=== PATIENT | male | born 1975 | race Native Hawaiian/Other Pacific Islander ===

== ENCOUNTER 2024-05-15 09:50 | Outpatient (REF) | payer OTHER, SELFPAY ==
[2024-05-15 11:08] LABS: MANUAL DIFF FLAG NO
[2024-05-15 11:14] LABS: Basophils Percent Auto 0.8 % (0-2); Eosinophils Absolute Auto 0.3 X10*3/uL (0.0-0.4); Eosinophils Percent Auto 5.6 % (0-4); Hemoglobin 15.6 g/dl (14.0-18.0); Imm Gran Abs Auto 0.05 X10*3/uL (0.00-0.03); Lymphocytes Absolute Auto 1.3 X10*3/uL (1.2-4.9); Lymphocytes Percent Auto 26.1 % (20-40); Mean Corpuscular HGB Conc 33.2 g/dl (31.0-36.0); Mean Corpuscular Volume 84.2 fL (80.0-98.0); Mean Platelet Volume 11.6 fL (9.4-12.4); Monocytes Absolute Auto 0.7 X10*3/uL (0.1-1.2); Monocytes Percent Auto 14.9 % (2-11); Neutrophils Absolute Auto 2.5 x10*3/uL (2.0-8.3); Neutrophils Percent Auto 51.6 % (45-73); Platelet Count 164 X10*3/uL (160-400); Red Blood Count 5.58 X10*6/uL (4.60-5.80); Red Cell Distribution Width 13.5 % (11.0-16.0); White Blood Count 4.8 X10*3/uL (4.8-10.8)
[2024-05-15 12:26] LABS: Alanine Aminotransferase 34 U/L (0-40); Albumin Level 4.1 g/dL (3.5-5.0); Alkaline Phosphatase 53 U/L (39-117); Anion Gap 10 (12-20); Aspartate Amino Transferase 30 U/L (5-37); Bilirubin Total 0.9 mg/dL (0.0-1.0); Blood Urea Nitrogen 19 mg/dL (9-16); Carbon Dioxide 27 mmol/L (22-29); Chloride 107 mmol/L (96-108); Cholesterol 161 mg/dL (<200); Estimated Glomerular Filt Rate > 60; Glucose Random 103 mg/dL (60-115); HDL Cholesterol 39 mg/dL (>40); LDL Cholesterol Calculated 103 mg/dL (<100); Potassium 4.3 mmol/L (3.3-5.1); Sodium 140 mmol/L (135-145); Triglycerides 96 mg/dL (<150)
[2024-05-15 12:39] LABS: Prostate Specific Antigen 0.89 ng/mL (<0.05-4.0)
[2024-05-15 12:47] LABS: HIV AB/AG Nonreactive (Nonreactive); HIV Num 1 0.05 S/CO (0.00-0.99); ~HepC Num1 0.14 S/CO (0.00-0.79); ~Hepatitis C Antibody Nonreactive (Nonreactive)
== END 2024-05-15 09:51 | disposition home or self-care (01) ==
LOC: HO.HHCL 09:50
PROVIDERS: Visit Provider Internal Medicine Geriatric Medicine
DX: Z11.59 Encounter for screening for other viral diseases (principal); Z13.1 Encounter for screening for diabetes mellitus; Z13.220 Encounter for screening for lipoid disorders; Z11.4 Encounter for screening for human immunodeficiency virus [HIV]; Z12.11 Encounter for screening for malignant neoplasm of colon; Z12.5 Encounter for screening for malignant neoplasm of prostate
CPT/HCPCS: 36415; 80053; 80061; 84153; 85025; 86803; 87389

== ENCOUNTER 2024-10-09 13:14 | Outpatient (AMB) | payer OTHER, SELFPAY ==
--- NOTE | 2024-10-09 13:15 | A.OFFVIS_ITS ---
Intake Visit Reasons: skin cyst anterior (R) shoulder area [employer] Book Writer Required: Yes [employer] And [employer] Book Writer Language: Infection Control Preventionist Services: [employer] And Sports Book Writer Present Race And Sports Book Writer Name: Evelyn Information Interpreted: non-clinical & clinical Accompanied by: Self / Same As Patient Allergies No Known Allergies Allergy (Verified 10/09/24 13:27) Medication List - Last Reconciled 10/09/24 by Chente Seo MD No Known Home Meds HPI HPI skin cyst anterior (R) shoulder area: Details: 49-year-old male referred for a cyst on the right shoulder. He said he has had this for about 2 years. He says this started as a pimple like mass. He says that this may have increased in size little bit. He describes some discomfort. He denies any drainage. [facility] Medical History (Updated 10/09/24 @ 13:27 by Chente Seo MD) Epidermal cyst Review of Systems Const Denies chills and Denies fever(s) Card Denies chest pain, Denies dyspnea and Denies dyspnea on exertion Resp Denies cough, Denies dyspnea and Denies dyspnea on exertion GI Denies hematochezia and Denies change in bowel habits Denies hematuria and Denies difficulty urinating Musc Denies back pain and Denies limited range of motion Neuro Denies focal weakness and Denies convulsions Psych Denies depression and Denies mood swings Physical Exam Const General: comfortable and no acute distress Orientation/consciousness: patient oriented x3 Neck Neck: Yes no lymphadenopathy Resp Auscultation: clear to auscultation bilaterally Cardio Rhythm: regular rhythm GI Palpation (GI): Soft to palpation, nontender and no guarding Neuro General: patient oriented x3 Extrem Other: Right upper arm laterally - cystic induration about 1 cm in diameter, well- defined, non fluctuant, not infected Assessment & Plan Assessment & Plan (1) Epidermal cyst: Code(s): L72.0 - Epidermal cyst Category: Medical Plan He has what appears to be an epidermal cyst on the right upper arm. He wants this excised. I explained the technique of excision under local anesthesia. I reviewed the risks including but not limited to bleeding and infections, as well as the benefits and alternatives. He understands and wants to proceed . This will be done as an office procedure on his next visit. Coding Level of Care Code New Pt Level 3 (67821) Diagnoses Epidermal cyst L72.0
--- OUTSIDE RECORDS SUMMARY | 2024-10-09 15:40 | XMS_ITS | Encounter Summary ---
Author Organization [email or web address] Address [address] [place] [address] Care Team Providers Care Rug Shampooer Name Role Phone Name, Evans ORTIZ Primary Care Provider [phone] Reason for Visit * Reason Comments Blurred Vision Encounter Details Date Type Department Care Team (Latest Contact Info) Description 09/26/2024 11:15 AM EST Office Visit [facility] [address] [place], [place] [id number] Tarka Marilin, OD [address] [place], [place] [id number] Acquired toxoplasmosis (Primary Dx); Age-related nuclear cataract of both eyes; Presbyopia Social History Tobacco Use Types Packs/Day Years Used Date Smoking Tobacco: Never Smokeless Tobacco: Never Alcohol Use Standard Drinks/Week Comments Yes 0 (1 standard drink = 0.6 oz pur e alcohol) social Depression Answer Date Recorded Patient Health Questionnaire-9 Score 5 04/29/2024 Patient Health Questionnaire-9 Score 5 04/29/2024 Last PHQ-9: Questionnaire Data Not on file 1 Housing Stability Answer Date Recorded What is your housing situation today? I have [facility] 04/29/[address] you li ve. Do you have problems with any of the following? None of the above 04/29/2024 Food Insecurity Answer Date Recorded Within the past 12 months, y ou worried that your food would run out before you got money to buy more: Never True 04/29/2024 Within the past 12 months,th e food you bought just didn't last and you didn't have enough money to get more: Never True 01/2024 Transportation Answer Date Recorded In the past 12 months, has l ack of transportation kept you from medical appts, meetings, work or from getting things needed for daily living? No 04/29/2024 Utilities Answer Date Recorded In the past 12 months, has t he electric, gas, oil or water company threatened to shut off services in your home? No 04/29/2024 Depression Answer Date Recorded Patient Health Questionnaire-2 Score 0 04/29/2024 Internet Access Answer Date Recorded Internet Access Q1 Yes 04/29/2024 Internet Access Q2 Not on file 04/29/2024 Sex and Gender Information Value Date Recorded Sex Assigned at Male 01/26/2024 2:16 PM EDT Legal Sex Male 2:14 PM EDT Gender Identity Male 01/26/2024 2:16 PM EDT Sexual Orientation Straight 04/29/2024 1: 39 PM EDT documented as of this encounter Progress Notes * Marilin Glez, OD - 09/26/2024 11:15 AM EST Eye Care Progress Note Patient ID: Walter Dennis is a 49 y.o. male. Chief Complaint Blurred Vision HPI Patient presents for complete eye exam. New patient at [facility]. Last eye exam ~ 6 months ago and was told that he had an injury on the back part of the eye and needed to see a specialist; was referred tosaid specialist went but was told he needed a referral from PCP to be seen there. Last medical exam~1 month ago and PCP referred him to [facility] at that appointment. Patient does not currently wear glasses or contacts and reports good vision without glasses at distance/near. Patient reports he does not have central vision in his left eye; has been like this for years and has been stable (since ~ 18 y/o). Denies trauma to left eye but was told many years ago that his condition could be due to interaction with cats. No other ocular or visual concerns today. Last edited by Radha Brown on 09/26/2024 12:09 PM. No current outpatient medications on file. No current facility-administered medications for this visit. History reviewed. No pertinent past medical history. History reviewed. No pertinent surgical history. No family history on file. Social History Socioeconomic History Marital status: Unknown Spouse name: Not on file Number of children: Not on file Years of education: Not on file Highest education level: Not on file Occupational History Not on file Tobacco Use Smoking status: Never Smokeless tobacco: Never Substance and Sexual Activity Alcohol use: Yes Comment: social Drug use: Never Sexual activity: Yes Partners: Female control/protection: Female Sterilization Other Topics Concern Not on file Social History Narrative Warehouse work Social Drivers of Health Food Insecurity: Low Risk (04/29/2024) Food Insecurity Within the past 12 months, you worried that your food would run out before you got money to buy more:: Never True Within the past 12 months,the food you bought just didn't last and you didn't have enough money to get more: : Never True Transportation Needs: Low Risk (04/29/2024) Transportation In the past 12 months, has lack of transportation kept you from medical appts, meetings, work or from getting things needed for daily living? : No Intimate Partner Violence: Not on file Housing Stability: Low Risk (04/29/2024) Housing Stability What is your housing situation today?: I have housing Think about the place you live. Do you have problems with any of the following? : None of the above No Known Allergies ROS Positive for: Eyes Negative for: Constitutional, Gastrointestinal, Neurological, Skin, Genitourinary, Musculoskeletal,HENT, Endocrine, Cardiovascular, Respiratory, Psychiatric, Allergic/Imm, Heme/Lymph Last edited by Marilin Glez, JORDAN on 09/26/2024 2:12 PM. Base Eye Exam Visual Acuity (Snellen - Linear) Right Left Dist sc 20/20-2 20/300 Near cc 20/25-2 >20/400 EV @ 3:00 OS Tonometry ([facility] , 11:26 AM) Right Left Pressure 14 18 Pupils Pupils Shape React APD Right PERRL Round Brisk None Left PERRL Round Brisk +2 Visual Prakash (Counting fingers) Left Right Full Restrictions Partial inner superior temporal, inferior temporal, superior nasal, inferior nasal deficiencies Facial Prakash: Right Eye - Full Left Eye - Unable to see face Extraocular Movement Right Left Full Full Neuro/Psych Oriented x3: Yes Mood/Affect: Normal Dilation Both eyes: 1.0% Tropicamide @ 11:28 AM Additional Tests Amsler Right Left Normal Unable to see grid Slit Lamp and Fundus Exam External Exam Right Left External Normal Normal Slit Lamp Exam Right Left Lids/Lashes 2+ capped MG LL 2+ capped MG LL Conjunctiva/Sclera diffuse bulbar melanosis, tr diffuse injection diffuse bulbar melanosis, tr diffuse injection Cornea arcus arcus Anterior Chamber Deep and quiet Deep and quiet Iris Flat Flat Lens tr NSC tr NSC Fundus Exam Right Left Vitreous syneresis banda ring, syneresis Disc [place] and distinct, PPA temp [place] and distinct, PPA temp, ~1 DD chorioretinal scarring/pigment clumping along inf harjit arcade C/D Ratio Vertical 0.55 0.55 C/D Ratio Horizontal 0.55 0.55 Macula Flat and intact 3x3DD area of severe chorioretinal scarring and pigment clumping Vessels Normal Normal Periphery No holes/breaks/tears 360 No holes/breaks/tears 360, 2-3 satellite lesions of chorioretinal scarring/pigment clumping sup harjit & inf harjit Refraction Manifest Refraction (Subjective) Sphere Cylinder [place] Dist VA Add Right +0.75 -0.50 090 20/20 +1.00 Left +0.75 -0.50 090 20/300 +1.00 Dist VA Both: 20/20 Near VA Both: 20/20 Manifest Refraction #2 (Auto) Sphere Cylinder [place] Dist VA Add Right +1.50 -1.00 087 Left +0.25 -0.50 073 Manifest Refraction Comments Trial framed at dist; patient report similar clarity w/o specs on. Final Rx Sphere Cylinder [place] Dist VA Add Right +0.75 -0.50 090 20/20 +1.00 Left Balance Balance 20/300 +1.00 Expiration Date: 09/26/2025 Comments: Polycarbonate Polycarbonate Assessment/plan: 1. Acquired toxoplasmosis left eye; longstanding Patient educated on condition. Inactive at today's visit. Patient understands that his vision in his left eye is reduced and cannot be fixed with glasses or surgery due to a prior microbial infectionwhich caused severe scarring to his central vision. Monitor yearly, sooner if patient experiences eye pain/light sensitivity or additional reduction in vision. 2. Age-related nuclear cataract of both eyes Patient educated on condition. Visually insignificant; no surgical intervention at this time. Monitor yearly, sooner if patient becomes dissatisfied with vision. 3. Presbyopia Patient educated on condition. Updated Rx and dispensed Final Rx to patient. Patient understands although he does not need glasses to see well in the distance, it is important to protect the good eyewith polycarbonate lenses as a monocular precaution. Monitor yearly, sooner if needed. Marilin Glez, OD 09/26/2024, 4:10 PM Student Name: I attest that I was physically present with the optometry student. I personally saw and evaluated the patient and performed my own history and examination. I have reviewed, verified, and revised the documented findings as necessary and agree with the content and plan as written. Soils Analyst Source: ___ None _x_ Bilingual Staff: Marilin ___ Qualified Staff Plastic Surgery Assistant ___ Telephone Soils Analyst; ID# ___ Soils Analyst brought by patient (family member, friend, TIMBER ROBBER, etc) ___ In person spanish medical interpreter ___ Ipad Soils Analyst; ID#: Language Spoken During Exam: ___Spanish____ documented in this encounter Plan of Treatment Not on file documented as of this encounter Procedures Procedure Name Priority Date/Time Associated Diagnosis Comments OCT, RETINA - OU - BOTH EYES Routine 09/26/2024 1:16 PM EST Acquired toxoplasmosis documented in this encounter Results * OCT, Retina - OU - Both Eyes (09/26/2024 1:16 PM EST) Marilin Prieto, OD - 09/26/2024 4:08 PM EST OCT [facility] INTERPRETATION Optical Coherence Tomography Interpretation Report (09/26/24) Scan quality: Right eye (OD): SS 55, good image quality however poor centration due to fixation difficulty Left eye (OS): SS 54, good image quality Test findings: OD: Macula flat and intact with normal foveal countour. (-) IRF/SRF; baseline OS: Absent foveal contour, (+) epiretinal membrane temporally and extensive chorioretinal scarring, RPE drop-out, and pigment migration/clumping throughout. Dense pigment and fibrosis temporally oscurring underlying signal, (-) IRF/SRF; baseline Impression and Plan: Acquired Toxoplasmosis OS; Inactive. Monitor yearly Marilin Glez OD OPHTH TOMOGRAPHY Edited documented in this encounter Visit Diagnoses Diagnosis Acquired toxoplasmosis- Primary Age-related nuclear cataract of both eyes Presbyopia documented in this encounter Additional Health Concerns Assessment Noted Time PHQ-9 Depression Total Score: 5 04/29/20 3:43 PM EDT documented as of this encounter Care Teams Rug Shampooer Relationship Specialty Start Date End Date Name, MD Evans [address] [place] [address] PCP - General Internal Medicine 04/29/24 documented as of this encounter
--- OUTSIDE RECORDS SUMMARY | 2024-10-09 15:40 | XMS_ITS | Encounter Summary ---
Author Organization [employer] Address [address] [facility] [address] [place] [address] Care Team Providers Care Ncqa Specialist Name Role Phone Evans Vickers MD Primary Care Provider Reason for Referral * Consultation (Routine) - Authorized Specialty Diagnoses / Procedures Referred By Contac t Referred To Contact General Surgery Diagnoses Skin cyst NameEvans MD [address] [place] [address] Phone: tel: fax: Chente Seo MD [address] [place] [address] [place] Phone: tel: fax: Referral ID Status Reason Start Date Expiration Date Visits Requested Visits Authorized [id number] Authorized Specialty Services Required 09/16/2024 09/16/2025 1 1 Reason for Visit * Reason Comments Follow-up Encounter Details Date Type Department Care Team ([facility] Contact Info) Description 09/16/2024 1:45 PM EST Office Visit [facility] [address] [place] [phone] Evans Vickers MD [address] [place] [id number] Skin cyst (Primary Dx); Healthcare maintenance Social History Tobacco Use Types Packs/Day Years Used Date Smoking Tobacco: Never Smokeless Tobacco: Never Tobacco Cessation:Counseling Given: Not Answered Alcohol Use Standard Drinks/Week Comments Yes 0 [...] PM EDT documented as of this encounter Last Filed Vital Signs Vital Sign Reading Time Taken Comments Blood Pressure 111/73 09/16/2024 1:35 PM EST Pulse 59 09/16/2024 1:35 PM EST Temperature 36.6 ??C (97.8 ??F) 09/16/2024 1:35 PM ES T Respiratory Rate 21 09/16/2024 1:35 PM EST Oxygen Saturation 98% 09/16/2024 1:35 PM EST Inhaled Oxygen Concentration - - Weight 83.7 kg (184 lb 9.6 oz) 09/16/2024 1:35 P M EST Height 172.7 cm (5' 8 ) 09/16/2024 1:35 PM EST Body Mass Index 28.07 09/16/2024 1:35 PM EST documented in this encounter Progress Notes * Evans Vickers MD - 09/16/2024 1:45 PM EST Subjective Patient ID: Walter Dennis is a 49 y.o. male who presents for Follow-up. Patient comes for a follow-up visit. He is asymptomatic. We discussed the favorable results of his recent fasting blood work. He has upcoming appointment for eye exam. He explains to me that he missed appointment with GI because of lack of insurance but he plans to reschedule. Patient complains of a skin cyst on the area anterior to the right shoulder that has been present for more than a year and is growing. He does not have any redness, no tenderness, no skin induration,no discharge from the area. Review of Systems Constitutional: Negative for chills, fatigue and fever. HENT: Negative for sore throat. Respiratory: Negative for cough, chest tightness and shortness of breath. Cardiovascular: Negative for chest pain, palpitations and leg swelling. Gastrointestinal: Negative for abdominal pain and blood in stool. Skin: See HPI Visit Vitals BP 111/73 (BP Location: Left arm, Patient Position: Sitting, BP Cuff Size: Adult) Pulse 59 Temp 97.8 ??F (36.6 ??C) (Temporal) Resp 21 Ht 5' 8 (1.727 m) Wt 184 lb 9.6 oz (83.7 kg) SpO2 98% BMI 28.07 kg/m?? Smoking Status Never BSA 2 m?? Objective Physical Exam Constitutional: General: He is not in acute distress. Appearance: He is not ill-appearing. Cardiovascular: Rate and Rhythm: Normal rate and regular rhythm. Pulmonary: Effort: Pulmonary effort is normal. No respiratory distress. Skin: Comments: Small skin cyst on the anterior shoulder area. Assessment/Plan Diagnoses and all orders for this visit: Skin cyst Comments: Referral to surgery to have this removed as requested. Orders: - Referral to General Surgery; Future Healthcare maintenance Comments: We discussed favorable results of recent blood work. PSA was normal. He is encouraged to keep upcoming appointment for eye exam. I will ask my MA to call GI to see when is his appointment for evaluation prior to screening colonoscopy. documented in this encounter Plan of Treatment Scheduled Referrals Name Type Priority Associated Diagnoses Orde r Schedule Referral to General Surgery Outpatient Referral Routine Skin cyst Expected: 09/16/2024 (Approximate), Expires: 09/16/2025 documented as of this encounter Visit Diagnoses Diagnosis Skin cyst- Primary Sebaceous cyst Healthcare maintenance documented in this encounter Additional Health Concerns Assessment Noted Time PHQ-9 Depression Total Score: 5 04/29/20 3:43 PM EDT documented as of this encounter Care Teams Ncqa Specialist Relationship Specialty Start Date End Date Name, MD Evans [address] [place] [id number] PCP - General Internal Medicine 04/29/24 documented as of this encounter
--- OUTSIDE RECORDS SUMMARY | 2024-10-09 15:40 | XMS_ITS | Encounter Summary ---
Author Organization [employer] Address [address] [facility] [address] [place] [address] Care Team Providers Care Complaint Clerk Name Role Phone Name, Evans ORTIZ Primary Care Provider [phone] Encounter Details Date Type Department Care Team (Latest Contact Info) Description 09/26/2024 Travel Social History Tobacco Use Types Packs/Day Years [...] PM EDT documented as of this encounter Plan of Treatment Not on file documented as of this encounter Visit Diagnoses Not on filedocumented in this encounter Additional Health Concerns Assessment Noted Time PHQ-9 Depression Total Score: 5 04/29/20 3:43 PM EDT documented as of this encounter Care Teams Complaint Clerk Relationship Specialty Start Date End Date Name, MD Evans [address] [place] [address] PCP - General Internal Medicine 04/29/24 documented as of this encounter
--- OUTSIDE RECORDS SUMMARY | 2024-10-09 15:40 | XMS_ITS | Clinical Summary ---
Author Organization [facility] Address [address] [place] [address] Care Team Providers Care Interior Paneler Name Role Phone Unavailable Primary Care Provider Unavailabl e Source Comments PLEASE NOTE, if this patient is a minor, it may be UNLAWFUL to discuss sensitive information that is contained in these records (such as FAMILY PLANNING, MENTAL HEALTH or SUBSTANCE ABUSE) with the minor patient's parent or other person without the patient's specific authorization.[facility] Allergies No known active allergies Social History Tobacco Use Types Packs/Day Years Used Date Smoking Tobacco: Never Smokeless Tobacco: Never Tobacco Cessation:Counseling Given: Not Answered Social Connections Answer Date Recorded Connectedness 0 04/07/2024 Financial Resource Strain Answer Date R ecorded Financial Resource Strain 0 2022 Stress Answer Date Recorded Stress 0 05/16/2023 Physical Activity Answer Date Recorded Physical Activity 0 05/16/2023 Food Insecurity Answer Date Recorded Food 0 04/18/2024 Transportation Needs Answer Date Record ed Transportation 0 05/16/2023 Housing Stability Answer Date Recorded Housing 0 05/16/2023 Safety and Environment Answer Date Malik rded Safety 0 05/16/2023 Utilities Answer Date Recorded Utilities 0 05/16/2023 Employment Answer Date Recorded Stress 0 04/07/2024 Sex and Gender Information Value Date Recorded Sex Assigned at Not on file Legal Sex Male 11:13 AM PDT Gender Identity Not on file Sexual Orientation Not on file Last Filed Vital Signs Vital Sign Reading Time Taken Comments Blood Pressure 129/74 01/30/2024 3:18 PM EDT Pulse 65 01/30/2024 3:18 PM EDT Temperature - - Respiratory Rate - - Oxygen Saturation - - Inhaled Oxygen Concentration - - Weight - - Height - - Body Mass Index - - Plan of Treatment Health Maintenance Due Date Last Done Comments Diabetes Screening 1977 Hepatitis C Screening 1977 Lipid Screening 1977 Tobacco Screening 1977 HIV Screening 02/01/1992 Imm-DTaP/Tdap/Td (1 - Tdap) 02/01/1996 Imm-Hepatitis B (1 of 3 - 19 + 3-dose series) 02/01/1996 CT Colonography 2022 Colonoscopy 2022 Colorectal Cancer Screening 2022 FIT/gFOBT 2022 Fecal DNA 2022 Flexible Sigmoidoscopy 2022 Mnc-XHQMF-50 (1 - season) 2024 Imm-Influenza (#1) 2024 Alcohol and Drug Screen 07/24/2024 Depression Annual Screen 07/24/2024 Hypertension Screening (#1) 01/29/2025 Dental BW 2025 01/30/2024, 08/23/2023 Dental Examination 2025 01/30/2024, 08/23/2023 Dental Perio Charting 2025 01/30/2024 Dental Prophy 2025 01/30/2024, 08/23/2023 Dental FMX/Pano 08/25/2028 08/23/2023 Procedures Procedure Name Priority Date/Time Associated Diagnosis Comments COMP PERIODONTAL EVALUATION - NEW/EST PATIENT Routine 01/30/2024 3:40 PM EDT Encounter for dental examination BITEWINGS - FOUR RADIOGRAPHIC IMAGES Routine 01/30/2024 3:40 PM EDT Encounter for dental examination PROPHYLAXIS - ADULT Routine 01/30/2024 3 :40 PM EDT Encounter for dental examination PERIODIC ORAL EVALUATION ESTABLISHED PATIENT Routine 01/30/2024 3:40 PM EDT Encounter for dental examination INTRAORAL - COMP SERIES OF RADIOGRAPHIC IMAGES Routine 08/23/2023 3:00 PM EST Caries of enamel (incipient) from Last 3 Months or Most Recently Relevant to Health Maintenance [place] D[place] [facility] DENTAL
--- OUTSIDE RECORDS SUMMARY | 2024-10-09 15:40 | XMS_ITS | Clinical Summary ---
Author Organization [employer] Address [address] [facility] [address] [place] [address] Care Team Providers Care Pulling Machine Operator Name Role Phone Name, Evans ORTIZ Primary Care Provider [phone] Allergies No known active allergies Medications No known medications Active Problems No known active problems Encounters Date Type Department Care Team Description 09/26/2024 11:15 AM EST Office Visit [facility] OPTOMETRY [address] [place], [place] [id number] Marilin Glez, JORDAN Acquired toxoplasmosis (Primary Dx); Age-related nuclear cataract of both eyes; Presbyopia 09/26/2024 Travel 09/16/2024 1:45 PM EST Office Visit [facility] [address] [place] [address] Name, MD Evans Skin cyst (Primary Dx); Healthcare maintenance 07/16/2024 Telephone [facility] [address] [place] [address] Maamdou Wei MA aug recalls from Last 3 Months Immunizations Name Administration Dates Next Due Influenza, seasonal, injectable, preservative fr ee 04/29/2024 Tdap 04/29/2024 Family History Relation Name Status Comments Father Social History Tobacco Use Types Packs/Day Years [...] Orientation Straight 04/29/2024 1: 39 PM EDT Last Filed Vital Signs Vital Sign Reading [...] Mass Index 28.07 09/16/2024 1:35 PM EST Plan of Treatment Health Maintenance Due Date Last Done Comments CT Colonography 1977 Colonoscopy 1977 Colorectal Cancer Screening 1977 FIT DNA/Cologuard 1977 FIT 1977 FOBT 1977 Sigmoidoscopy 1977 Alcohol/Substance Use Screening 1989 Family Planning (PISQ) 02/01/1992 Hepatitis B Vaccines (1 of 3 - 19+ 3-dose series) 02/01/1996 COVID-19 Vaccine (2023-2 5 season) 2024 07/05/2021, 12/08/2020, 11/17/2020 Depression Screening 04/29/2025 04/29/2024, 04/29/2024 SDOH Screening 04/29/2025 04/29/2024 Tobacco Screening 09/26/2025 09/26/2024 Zoster Vaccines (1 of 2) 2027 Lipid Panel 05/15/2029 05/15/2024 DTaP/Tdap/Td Vaccines (2 - T d or Tdap) 04/29/2034 04/29/2024 RSV Patients and Patients Aged 60 years or older (1 - 1-dose 75+ series) 02/01/2052 Influenza Vaccine Completed 04/29/2024 HIV Screening Completed 05/15/2024 Hepatitis C Screening Completed 05/15/2024 HIB Vaccines Aged Out No longer eligi ble based on patient's age to complete this topic HPV Vaccines Aged Out No longer eligi ble based on patient's age to complete this topic Hepatitis A Vaccines Aged Out No long er eligible based on patient's age to complete this topic IPV Vaccines Aged Out No longer eligi ble based on patient's age to complete this topic Meningococcal Vaccine Aged Out No ben jose eligible based on patient's age to complete this topic Pneumococcal Vaccine: Pediatrics (0 to 5 Years) and At-Risk Patients (6 to 49) Years) Aged Out No longer eligible b ased on patient's age to complete this topic RSV under 20 months Aged Out No longe r eligible based on patient's age to complete this topic Rotavirus Vaccines Aged Out No longer eligible based on patient's age to complete this topic Procedures Procedure Name Priority Date/Time Associated Diagnosis Comments OCT, RETINA - OU - BOTH EYES Routine 09/26/2024 1:16 PM EST Acquired toxoplasmosis HEPATITIS C AB W/REFL TO HCV RNA, QN, PCR Routine 05/15/2024 9:55 AM EDT Need for hepatitis C screening test HIV 1/2 ANTIGEN/ANTIBODY, FOURTH GENERATION W/RFL Routine 05/15/2024 9:55 AM EDT Screening for HIV (human immunodeficiency virus) LIPID PANEL, STANDARD Routine 05/15/2024 9:55 AM EDT Screening for cholesterol level from Last 3 Months or Most Recently Relevant to Health Maintenance Results * OCT, Retina - OU - Both Eyes (09/26/2024 1:16 PM EST) Narrative Amaris Marilin, OD - 09/26/2024 4:08 PM EST OCT [...] Plan: Acquired Toxoplasmosis OS; Inactive. Monitor yearly Result [facility] Marilin Glez OD OPHTH TOMOGRAPHY Edited * Hepatitis C Antibody with Reflex to HCV, RNA, Quantitative, Real-Time PCR (05/15/2024 9:55 AM EDT) Hepatitis C Antibody Nonreactive Nonreactive [facility] Comment:Antibodies to HCV no t detected; does not exclude early acuteHCV infection. Blood Venous blood specimen / Unknown 05/15/2024 9:55 AM EDT 05/15/2024 11:06 AM EDT Evans Vickers MD LAB BLOOD ORDERABLES Final Resul t [facility] [address] [place] [phone] * HIV-1/2 Antigen and Antibodies, Fourth Generation, with Reflexes (05/15/2024 9:55 AM EDT) HIV AB/AG Nonreactive Nonreactive [facility] Comment:HIV-1 p24 Ag and/or HIV-1/HIV-2 Ab not detected.A test result that is nonreactive does not exclude thepossibility of exposure to or infection with HIV-1 and/orHIV-2. Nonreactive results in this assay for individualswith prior exposure to HIV-1 and/or HIV-2 may be due toantigen and antibody levels that are below the limit ofdetection of this assay.The [employer] HIV Ag/Ab Combo assay result andsupplemental assay results should be interpreted inconjunction with the patient's clinical presentation,history and other laboratory results. If the results areinconsistent with clinical evidence, additional testing issuggested to confirm the result. Blood Venous blood specimen / Unknown 05/15/2024 9:55 AM EDT 05/15/2024 11:06 AM EDT us Evans Name LAB BLOOD ORDERABLES Final Resul t [facility] [address] [place] [phone] * (ABNORMAL) Lipid Panel, Standard (05/15/2024 9:55 AM EDT) Triglycerides 96 <150 mg/dL [facility] Comment:Desirable Triglyceri de: less than 150 mg/dLBorderline High Triglyceride 150-199 mg/dLHigh Triglyceride: 200-499 mg/dLVery High Triglyceride: greater than or equal to 5OO mg/dL Cholesterol 161 <200 mg/dL [facility] Comment:Desirable Cholestero l: less than 200 mg/dLBorderline High Cholesterol: 200-239 mg/dLHigh Cholesterol: greater than 239 mg/dL LDL Cholesterol Calculated 103(H) <100 mg/dL [facility] Comment:Desirable LDL: less than 100 mg/dLNear Optimal/Above Optimal LDL: 110- 129 mg/dLBorderline High LDL: 130-159 mg/dLHigh LDL: 160-189 mg/dLVery High LDL: greater than or equal to 190 mg/dL HDL Cholesterol 39(L) >40 mg/dL [facility] Comment:Desirable HDL: great er than 40 mg/dL Note: This HDL assay may give artificially low results in patients with liver disease. Blood Venous blood specimen / Unknown 05/15/2024 9:55 AM EDT 05/15/2024 11:12 AM EDT us Evans Name LAB BLOOD ORDERABLES Final Resul t [facility] [address] [place] [address] [phone] from Last 3 Months or Most Recently Relevant to Health Maintenance Insurance [facility] [employer] Care Teams Pulling Machine Operator Relationship Specialty Start Date End Date Name, MD Evans [address] [place] [address] PCP - General Internal Medicine 04/29/24
== END 2024-10-09 13:31 | disposition home or self-care (01) ==
LOC: HO.HGS 13:15
PROVIDERS: PCP Internal Medicine Geriatric Medicine; Visit Provider Surgery
DX: L72.0 Epidermal cyst (principal)
CPT/HCPCS: 99203

== ENCOUNTER → 2024-10-09 13:14 | Outpatient (BNVA) | payer OTHER, SELFPAY | PROVIDERS: PCP Internal Medicine Geriatric Medicine; Visit Provider Surgery | DX: L72.0 Epidermal cyst (principal) | CPT/HCPCS: 99202 ==

== ENCOUNTER 2024-10-23 14:07 | Outpatient (AMB) | payer OTHER, SELFPAY ==
[2024-10-23 14:14] VITALS: BP 135/76; PULSE 61; BMI 28.4
--- NOTE | 2024-10-23 14:14 | MHC.OFFVIS ---
Vital Signs 10/23/24 14:14 Height 5 ft 8 in Weight 187 lb BMI 28.4 BP 135/76 Blood Pressure Location Rt brachial Position Sitting Pulse 61 Intake Visit Reasons: excision cyst right upper arm Intake Note: Patient here for cyst excision on Rt upper arm. Maintenance Data Analyst Required: No Accompanied by: Self / Same As Patient Allergies No Known Allergies Allergy (Verified 10/23/24 14:19) Medication List - Last Reconciled 10/23/24 by Chente Seo MD No Known Home Meds HPI HPI excision cyst right upper arm: Details: He is here for excision of a cyst from the right upper arm [facility] Medical History Epidermal cyst Physical Exam Vital Signs: Last Vital Signs Pulse 61 10/23/24 14:14 BP 135/76 10/23/24 14:14 BMI result Body Mass Index 28.4 Office Procedures Excision Details: He was in a reclining position. The area of the cyst on the right upper arm was prepped and draped. Lidocaine 1% was used for local anesthesia. I made an elliptical incision on the skin surrounding this cyst with a blade 15. And this carried down through the full-thickness of the skin to excise this entire cyst. This was sent as specimen. The cyst was about 1 cm in diameter. I closed the incision with full-thickness nylon 3-0 simple interrupted sutures. Dressings were applied. He tolerated procedure well. He was given wound care instructions. 65701-ilxju/arms/legs 0.6-1cm Procedure code (CPT) selection complete Assessment & Plan Assessment & Plan (1) Epidermal cyst: Code(s): L72.0 - Epidermal cyst Category: Medical Plan: Excision was done in the office. He will be seen in the office for removal of sutures in about 2 weeks. Coding Level of Care Code Procedure Only Diagnoses Epidermal cyst L72.0 CPT Codes Trunk/Arms/Legs - CPT: 94020-sfvxx/arms/legs 0.6-1cm ([id number])
--- OUTSIDE RECORDS SUMMARY | 2024-10-23 16:52 | XMS_ITS | Clinical Summary ---
Author Organization [facility] Address [address] [place] [address] Care Team Providers Care Sql Programmer Name Role Phone Unavailable Primary Care Provider [...] Health Maintenance Due Date Last Done Comments Anxiety Screening 1977 Diabetes Screening 1977 Hepatitis C Screening 1977 Lipid Screening 1977 Tobacco Screening 1977 HIV Screening 02/01/1992 Imm-DTaP/Tdap/Td (1 - Tdap) 02/01/1996 Imm-Hepatitis B (1 of 3 - 19 + 3-dose series) 02/01/1996 CT Colonography 2022 Colonoscopy 2022 Colorectal Cancer Screening 2022 FIT/gFOBT 2022 Fecal DNA 2022 Flexible Sigmoidoscopy 2022 [id number] (1 - season) 2024 Imm-Influenza (#1) 2024 [...] Most Recently Relevant to Health Maintenance Insurance [place] [facility]
--- OUTSIDE RECORDS SUMMARY | 2024-10-23 16:52 | XMS_ITS | Clinical Summary ---
Author Organization [employer] Address [address] [facility] [address] [place] [address] Care Team Providers Care Underbaster Name Role Phone Name, Evans ORTIZ Primary Care Provider Allergies No known active allergies Medications No known medications Active Problems No known active problems Encounters Date Type Department Care Team Description 09/26/2024 11:15 AM EST Office Visit [facility] OPTOM[facility]RY [address] [place] [address] Marilin Glez, OD Acquired toxoplasmosis (Primary Dx); Age-related nuclear cataract of both eyes; Presbyopia 09/26/2024 Travel 09/16/2024 1:45 PM EST Office Visit [facility] [address] [place] [address] Name, MD Evans Skin cyst (Primary Dx); Healthcare maintenance from Last 3 Months Immunizations Name Administration [...] - 19+ 3-dose series) 02/01/1996 COVID-19 Vaccine (4 - 2023-2 5 season) 2024 07/05/2021, 12/08/2020, 11/17/2020 Depression [...] yearly Marilin Glez OD OPHTH TOMOGRAPHY Edited * Hepatitis C Antibody with Reflex to HCV, RNA, Quantitative, Real-Time PCR (05/15/2024 9:55 AM EDT) Hepatitis C Antibody Nonreactive Nonreactive [facility] Comment:Antibodies to HCV no t detected; does not exclude early acuteHCV infection. Blood Venous blood specimen / Unknown 05/15/2024 9:55 AM EDT 05/15/2024 11:06 AM EDT us Evans Vickers MD LAB BLOOD ORDERABLES Final Resul t [facility] [address] [place] [phone] * HIV-1/2 Antigen and Antibodies, Fourth Generation, with Reflexes (05/15/2024 9:55 AM EDT) HIV AB/AG Nonreactive Nonreactive [facility] Comment:HIV-1 p24 Ag and/or HIV-1/HIV-2 Ab not detected.A test result that is nonreactive does not exclude thepossibility of exposure to or infection with HIV-1 and/orHIV-2. Nonreactive results in this assay for individualswith prior exposure to HIV-1 and/or HIV-2 may be due toantigen and antibody levels that are below the limit ofdetection of this assay.The [employer] HIV Ag/Ab Combo assay result andsupplemental assay results should be interpreted inconjunction with the patient's clinical presentation,history and other laboratory results. If the results areinconsistent with clinical evidence, additional testing issuggested to confirm the result. Blood Venous blood specimen / Unknown 05/15/2024 9:55 AM EDT 05/15/2024 11:06 AM EDT us Evans Name LAB BLOOD ORDERABLES Final Resul t [facility] [address] [place] [phone] * (ABNORMAL) Lipid Panel, Standard (05/15/2024 9:55 AM EDT) Triglycerides 96 <150 mg/dL [facility] Comment:Desirable Triglyceri de: less than 150 mg/dLBorderline High Triglyceride 150-199 mg/dLHigh Triglyceride: 200-499 mg/dLVery High Triglyceride: greater than or equal to 5OO mg/dL Cholesterol 161 <200 mg/dL [facility] Comment:Desirable Cholestero l: less than 200 mg/dLBorderline High Cholesterol: 200-239 mg/dLHigh Cholesterol: greater than 239 mg/dL LDL Cholesterol Calculated 103(H) <100 mg/dL [facility] Comment:Desirable LDL: less than 100 mg/dLNear Optimal/Above Optimal LDL: 110- 129 mg/dLBorderline High LDL: 130-159 mg/dLHigh LDL: 160-189 mg/dLVery High LDL: greater than or equal to 190 mg/dL HDL Cholesterol 39(L) >40 mg/dL [facility] Comment:Desirable HDL: great er than 40 mg/dL Note: This HDL assay may give artificially low results in patients with liver disease. Blood Venous blood specimen / Unknown 05/15/2024 9:55 AM EDT 05/15/2024 11:12 AM EDT us Evans Vickers MD LAB BLOOD ORDERABLES Final Resul t [facility] [address] [place] [address] [phone] from Last 3 Months or Most Recently Relevant to Health Maintenance Insurance [employer] [facility] Care Teams Underbaster Relationship Specialty Start Date End Date Name, MD Evans [address] [place] [address] PCP - General Internal Medicine 04/29/24
== END 2024-10-23 14:36 | disposition home or self-care (01) ==
LOC: HO.HGS 14:08
PROVIDERS: PCP Internal Medicine Geriatric Medicine; Visit Provider Surgery
DX: L72.11 Pilar cyst (principal)
CPT/HCPCS: 11402

== ENCOUNTER 2024-10-23 14:07 | Outpatient (REF) | payer OTHER, SELFPAY ==
--- OUTSIDE RECORDS SUMMARY | 2024-10-23 17:23 | XMS_ITS | Clinical Summary ---
Author Organization [facility] Address [address] [place] [address] Care Team Providers Care Protein Purification Scientist Name Role Phone Unavailable Primary Care Provider [...] 2022 Fecal DNA 2022 Flexible Sigmoidoscopy 2022 [id number] (1 - season) 2024 Imm-Influenza (#1) 2024 [...] Most Recently Relevant to Health Maintenance Insurance [place] MEDICAID DENT[place] [facility]
--- OUTSIDE RECORDS SUMMARY | 2024-10-23 17:23 | XMS_ITS | Clinical Summary ---
Author Organization [employer] Address [address] [facility] [address] [place] [address] Care Team Providers Care Automobile Glass Technician Name Role Phone Name, Evans ORTIZ Primary Care Provider [phone] Allergies No known active allergies Medications No known medications Active Problems No known active problems Encounters Date Type Department Care Team Description 09/26/2024 11:15 AM EST Office Visit [facility] OPTOMETRY [address] [place] [address] Marilin Glez, OD Acquired toxoplasmosis (Primary Dx); Age-related nuclear cataract of both eyes; Presbyopia 09/26/2024 Travel 09/16/2024 1:45 PM EST Office Visit [facility] [address] [place] [address] Name, MD Evans Skin cyst (Primary Dx); [...] AM EDT) Hepatitis C Antibody Nonreactive Nonreactive [facility] Comment:Antibodies to HCV no t detected; does not exclude early acuteHCV infection. Blood Venous blood specimen / Unknown 05/15/2024 9:55 AM EDT 05/15/2024 11:06 AM EDT us Evans Vickers MD LAB BLOOD ORDERABLES Final Resul t [facility] [address] [place] [phone] * HIV-1/2 Antigen and Antibodies, Fourth Generation, with Reflexes (05/15/2024 9:55 AM EDT) HIV AB/AG Nonreactive Nonreactive [facility] Comment:HIV-1 p24 Ag and/or HIV-1/HIV-2 Ab not detected.A test result that is nonreactive does not exclude thepossibility of exposure to or infection with HIV-1 and/orHIV-2. Nonreactive results in this assay for individualswith prior exposure to HIV-1 and/or HIV-2 may be due toantigen and antibody levels that are below the limit ofdetection of this assay.The [employer] HIV Ag/Ab Combo assay result andsupplemental assay results should be interpreted inconjunction with the patient's clinical presentation,history and other laboratory results. If the results areinconsistent with clinical evidence, additional testing issuggested to confirm the result. Blood Venous blood specimen / Unknown 05/15/2024 9:55 AM EDT 05/15/2024 11:06 AM EDT us Evans Name LAB BLOOD ORDERABLES Final Resul t [facility] [address] [place] [phone] * (ABNORMAL) Lipid Panel, Standard (05/15/2024 9:55 AM EDT) Triglycerides 96 <150 mg/dL [facility] Comment:Desirable Triglyceri de: less than 150 mg/dLBorderline High Triglyceride 150-199 mg/dLHigh Triglyceride: 200-499 mg/dLVery High Triglyceride: greater than or equal to 5OO mg/dL Cholesterol 161 <200 mg/dL [facility] Comment:Desirable Cholestero l: less than 200 mg/dLBorderline High Cholesterol: 200-239 mg/dLHigh Cholesterol: greater than 239 mg/dL LDL Cholesterol Calculated 103(H) <100 mg/dL [facility] Comment:Desirable LDL: less than 100 mg/dLNear Optimal/Above Optimal LDL: 110- 129 mg/dLBorderline High LDL: 130-159 mg/dLHigh LDL: 160-189 mg/dLVery High LDL: greater than or equal to 190 mg/dL HDL Cholesterol 39(L) >40 mg/dL [facility] Comment:Desirable HDL: great er than 40 mg/dL Note: This HDL assay may give artificially low results in patients with liver disease. Blood Venous blood specimen / Unknown 05/15/2024 9:55 AM EDT 05/15/2024 11:12 AM EDT us Evans Vickers MD LAB BLOOD ORDERABLES Final Resul t [facility] [address] [place] [phone] from Last 3 Months or Most Recently Relevant to Health Maintenance Insurance [place] [employer] [facility] [employer] Care Teams Automobile Glass Technician Relationship Specialty Start Date End Date Name, MD Evans [address] [place] [address] PCP - General Internal Medicine 04/29/24
== END 2024-10-23 14:08 | disposition home or self-care (01) ==
LOC: HO.LNP 14:07
PROVIDERS: PCP Internal Medicine Geriatric Medicine; Visit Provider Surgery
DX: L72.0 Epidermal cyst (principal)
CPT/HCPCS: 11402; 88304

== ENCOUNTER → 2024-11-06 12:15 | Outpatient (BNVA) | payer OTHER, SELFPAY | PROVIDERS: PCP Internal Medicine Geriatric Medicine; Visit Provider Surgery | DX: Z48.02 Encounter for removal of sutures (principal) | CPT/HCPCS: 99211 ==

== ENCOUNTER 2024-11-20 08:19 | Outpatient (AMB) | payer OTHER, SELFPAY ==
[2024-11-20 08:25] VITALS: BP 118/78; PULSE 60; O2SAT 97; BMI 28.6
--- NOTE | 2024-11-20 08:25 | A.OFFVIS_ITS ---
Vital Signs 11/20/24 08:25 Height 5 ft 8 in Weight 188 lb BMI 28.6 BP 118/78 Blood Pressure Location Rt brachial Position Sitting Pulse 60 Pulse Source Pulse Oximeter Pulse Oximetry (%) 97 Oxygen Delivery Method Room Air Intake Visit Reasons: [place] screening Intake Note: ESTABLISHED PATIENT for initial colo screening. Chief Complaint; Pt denies any GI sx or concerns. No pertinent FMHx reported. Seed Analysis Laboratory Assistant Required: Yes Seed Analysis Laboratory Assistant Services: Seed Analysis Laboratory Assistant Present Seed Analysis Laboratory Assistant Name: Johnathan Murray296 + [facility] Information Interpreted: clinical only Accompanied by: Self / Same As Patient Allergies environmental allergies Allergy (Unknown, Verified 11/20/24 08:37) Itching HPI HPI [place] screening: Details: 49 year old? male is here today for pre colonoscopy screening.? Patient was sent to us by his PCP.? This is his first colonoscopy screening.? Patient denies any gastrointestinal symptoms in the past or at present.? Denies any personal or family history of gastrointestinal disease, colon polyps, or CRC.? Denies history of difficulty with sedation or anesthesia in the past.? Negative for history of sleep apnea.? Denies any history of cardiac, renal, pulmonary, or hepatic disease.?? No history of infectious? diseases like hepatitis A, B, C, HIV or tuberculosis.? Patient is not on any anticoagulation PFSH Medical History Epidermal cyst Social History Alcohol intake: current Comment: Socially Patient Tobacco Use Status: Never used Tobacco Use of substances other than those prescribed or required for medical reasons: No Review of Systems Const Denies weight gain and Denies weight loss ENT Reports no additional complaints, Denies dysphagia and Denies odynophagia Card Reports no additional complaints Resp Reports no additional complaints GI Denies abdominal pain, Denies belching, Denies melena, Denies bloating, Denies change in bowel habits, Denies dysphagia, Denies excessive flatus, Denies dyspepsia, Denies heartburn, Denies diarrhea, Denies loose stools, Denies nausea, Denies odynophagia and Denies vomiting Reports no additional complaints Musc Reports no additional complaints Neuro Reports no additional complaints Psych Reports no additional complaints Endo Reports no additional complaints Physical Exam Vital Signs: Last Vital Signs Pulse 60 11/20/24 08:25 BP 118/78 11/20/24 08:25 Pulse Ox 97 11/20/24 08:25 Oxygen Delivery Method Room Air 11/20/24 08:25 BMI result Body Mass Index 28.6 Const General: healthy appearing, no acute distress and well developed Nutritional Appearance: well nourished Orientation/consciousness: patient oriented x3 Resp Effort & Inspection: normal respiratory effort, able to speak in complete sentences, no tracheal deviation and symmetric chest movement Auscultation: clear to auscultation bilaterally Cardio Rate: regular rate GI Inspection: Yes normal to inspection and No distended Palpation (GI): Soft to palpation, not firm, nontender and No hepatosplenomegaly present Auscultation: normal bowel sounds General: Yes no CVA tenderness Back/Spine/Pelvis Back: no CVA tenderness Skin General skin exam: elasticity normal, turgor normal and dry skin Neuro General: patient oriented x3 Psych Appearance: grossly normal Mental Status: mental status grossly normal Assessment & Plan Assessment & Plan (1) Screen for colon cancer: Code(s): Z12.11 - Encounter for screening for malignant neoplasm of colon Plan Patient denies any GI, cardiac or respiratory symptoms.? Denies any issues with anesthesia in the past.? Denies any history of sleep apnea.? No history infectious diseases in the past or present.? Not on any anticoagulation therapy.? No family or personal history of colon cancer or polyps.? Patient denies melena, hematochezia, unintentional weight loss or ribbon like stools.? Discussed at length the pre-procedure,? prep, diet & medications as well as what to expect prior, during and after the procedure.?? Stressed the importance of good bowel prep.? Recommended the use of Vaseline or Calmoseptine OTC & baby wipes with bowel movements to promote comfort.? ?Patient verbalizes understanding and agrees to plan of care.? He was given the opportunity to ask questions and all questions answered.? We will see his after the procedure.? Medications: New polyethylene glycol 3350 (Miralax) As directed by gastroenterology department at [facility] 238 grams PO ONCE 238 grams 0RF Z12.11 - Encounter for screening for malignant neoplasm of colon bisacodyl (Dulcolax (bisacodyl)) take 4 tabs at noon the day before your colonoscopy 20 mg (4 x 5 mg) PO ONCE 1 day 4 tabs 0RF Z12.11 - Encounter for screening for malignant neoplasm of colon Coding Level of Care Code New Pt Level 3 (51184) Diagnoses Screen for colon cancer Z12.11 Time Spent (min) 40 Comment 30 minutes spent with patient and additional 10 minutes spent reviewing his records
--- OUTSIDE RECORDS SUMMARY | 2024-11-20 08:32 | XMS_ITS | Clinical Summary ---
Author Organization [employer] Address [address] [facility] [address] [place] [address] Care Team Providers Care Pricing Supervisor Name Role Phone Name, Evasn ORTIZ Primary Care Provider [phone] Allergies No known active allergies Medications No known medications Active Problems No known active problems Encounters Date Type Department Care Team Description 10/23/2024 Orders Only GENERIC EXTERNAL DATA DEPARTMENT Provider, Nataliya External Data 09/26/2024 11:15 AM EST Office Visit [facility] OPTOM[facility] [address] [place] [address] TarMarilin alcala, OD Acquired toxoplasmosis (Primary Dx); Age-related nuclear cataract of both eyes; Presbyopia 09/26/2024 Travel 09/16/2024 1:45 PM EST Office Visit [facility] MEDICINE [address] [place] [address] Name, MD Evans Skin cyst (Primary Dx); [...] Procedure Name Priority Date/Time Associated Diagnosis Comments GROSS AND MICROSCOPIC LEVEL 3 Routine 10/23/2024 2:30 PM EDT OCT, RETINA - OU - BOTH EYES [...] Recently Relevant to Health Maintenance Results * Gross and Microscopic Level 3 (10/23/2024 2:30 PM EDT) 10/23/2024 2:30 PM EDT 10/24/2024 6:30 AM EDT [facility] LABS - 10/25/2024 3:39 PM EDT ----- ------- Name: Walter Dennis ?Age/Sex: 49/M ? : 1975 Unit#: [id number] ?? Attend Dr: Chente Seo MD ?Re10/23/24 ?Status: DEP REF ? Location: HO.LNP ?Disch: ? ----- ------- SPEC : [id number] ? RECD: 10/24/24 ? STATUS: ??SOUT ? REQ NUM: [id number] ? YAHAIRA: 10/23/240 ? SUBM DR: Chente Seo MD ? ENTERED: ??10/24/24 ?SP TYPE: Surgical ? OTHR DR: Evans Vickers MD ? ORDERED: ??Gross Micro L3 ? Diagnosis ?? Skin, right upper arm, excision: ??Pilar cyst. ?Clinical History EIC vs foreign body ?Microscopic Description Microscopic sections reviewed. ? Material Received ?? Right upper arm EIC vs foreign body ? Gross Description Received in formalin labeled ?right upper arm? is a 1.3 x 0.7 cm ellipse of patterson skin and firm and nodular subcutaneous tissue excised to a maximum depth 0.8 cm. ??There is a palpable indurated nodule within the dermal and subcutaneous tissues measuring approximately 0.8 cm. The skin surface displays a central 0.6 x 0.5 cm ill-defined slightly puckered and retracted and keratotic focus. ??The margins are inked and the specimen is serially sectioned to reveal a subjacent intact thin-walled patterson-white cyst measuring 0.9 cm containing dense patterson-brown keratotic material. ??The specimen is entirely submitted in a cassette labeled A. CEDS Copies To: ?? Chente Seo MD ?? [facility] General Surgeons ?? [address] [facility] ?? [place] [address] ?? [phone] ?? Name,Evans ORTIZ ?? [address] [facility] ?? [place] [address] ?? [phone] ----- ------- Signed (signature on file) Cedric Galicia MD 10/25/24 [id number] ? ----- ------- ? END OF REPORT ? Generic External Data Provider LAB [facility] NEIL QUILES Final Result [facility] [address] [place] [address] [place] [phone] * OCT, Retina - OU - Both Eyes (09/26/2024 1:16 PM EST) Narrative LucianafredrickBowenMarilin, OD - 09/26/2024 4:08 PM EST OCT [...] AM EDT) Hepatitis C Antibody Nonreactive Nonreactive [facility] Comment:Antibodies to HCV no t detected; does not exclude early acuteHCV infection. Blood Venous blood specimen / Unknown 05/15/2024 9:55 AM EDT 05/15/2024 11:06 AM EDT Evans Vickers MD LAB BLOOD ORDERABLES Final Resul t [facility] [address] [place] [phone] * HIV-1/2 Antigen and Antibodies, Fourth Generation, with Reflexes (05/15/2024 9:55 AM EDT) HIV AB/AG Nonreactive Nonreactive [facility] Comment:HIV-1 p24 Ag and/or HIV-1/HIV-2 Ab not detected.A test result that is nonreactive does not exclude thepossibility of exposure to or infection with HIV-1 and/orHIV-2. Nonreactive results in this assay for individualswith prior exposure to HIV-1 and/or HIV-2 may be due toantigen and antibody levels that are below the limit ofdetection of this assay.The [employer] HIV Ag/Ab Combo assay result andsupplemental assay results should be interpreted inconjunction with the patient's clinical presentation,history and other laboratory results. If the results areinconsistent with clinical evidence, additional testing issuggested to confirm the result. Blood Venous blood specimen / Unknown 05/15/2024 9:55 AM EDT 05/15/2024 11:06 AM EDT Evans Vickers MD LAB BLOOD ORDERABLES Final Resul t Performing Organization Address [facility] Co de Phone Number [facility] [address] [place] [phone] [phone] * (ABNORMAL) Lipid Panel, Standard (05/15/2024 9:55 AM EDT) Triglycerides 96 <150 mg/dL [facility] Comment:Desirable Triglyceri de: less than 150 mg/dLBorderline High Triglyceride 150-199 mg/dLHigh Triglyceride: 200-499 mg/dLVery High Triglyceride: greater than or equal to 5OO mg/dL Cholesterol 161 <200 mg/dL [facility] Comment:Desirable Cholestero l: less than 200 mg/dLBorderline High Cholesterol: 200-239 mg/dLHigh Cholesterol: greater than 239 mg/dL LDL Cholesterol Calculated 103(H) <100 mg/dL [facility] Comment:Desirable LDL: less than 100 mg/dLNear Optimal/Above Optimal LDL: 110- 129 mg/dLBorderline High LDL: 130-159 mg/dLHigh LDL: 160-189 mg/dLVery High LDL: greater than or equal to 190 mg/dL HDL Cholesterol 39(L) >40 mg/dL [facility] Comment:Desirable HDL: great er than 40 mg/dL Note: This HDL assay may give artificially low results in patients with liver disease. Blood Venous blood specimen / Unknown 05/15/2024 9:55 AM EDT 05/15/2024 11:12 AM EDT us Evans Vickers MD LAB BLOOD ORDERABLES Final Resul t Performing Organization Address [facility] Co de Phone Number [facility] [address] [place] [address] [phone] from Last 3 Months or Most Recently Relevant to Health Maintenance Insurance [employer] [facility] Address: [facility] [address] [place] [address] Care Teams Pricing Supervisor Relationship Specialty Start Date End Date Name, MD Evans [address] [place] [phone] PCP - General Internal Medicine 04/29/24
--- OUTSIDE RECORDS SUMMARY | 2024-11-20 08:33 | XMS_ITS | Clinical Summary ---
Author Organization [facility] Address [address] [place] [address] Care Team Providers Care Youth Teacher Name Role Phone Unavailable Primary Care Provider [...] 2022 Fecal DNA 2022 Flexible Sigmoidoscopy 2022 [id number] (1 - season) 2024 Imm-Influenza (#1) 2024 [...] Most Recently Relevant to Health Maintenance Insurance [place] MEDICAID DENT[place] [facility]
== END 2024-11-20 10:37 | disposition home or self-care (01) ==
LOC: HO.HGI 08:20
PROVIDERS: PCP Internal Medicine Geriatric Medicine; Visit Provider Nurse Practitioner Family
DX: Z01.818 Encounter for other preprocedural examination (principal); Z12.11 Encounter for screening for malignant neoplasm of colon
CPT/HCPCS: 99202

== ENCOUNTER → 2024-11-20 08:19 | Outpatient (BNVA) | payer OTHER, SELFPAY | PROVIDERS: PCP Internal Medicine Geriatric Medicine; Visit Provider Nurse Practitioner Family | DX: Z01.818 Encounter for other preprocedural examination (principal) | CPT/HCPCS: 99202 ==

== ENCOUNTER 2025-01-08 09:12 | Day surgery (SDC) | payer OTHER, SELFPAY ==
--- OUTSIDE RECORDS SUMMARY | 2025-01-06 12:51 | XMS_ITS | Clinical Summary ---
Author Organization [employer] Address [address] [facility] [address] [place] [address] Care Team Providers Care Airplane Pilot Name Role Phone Name, Evans ORTIZ Primary Care Provider [phone] Allergies No known active allergies Medications No known medications Active Problems No known active problems Encounters Date Type Department Care Team Description 12/30/2024 Telephone [facility] [address] [place], [place] [phone] [place], [place] february recalld 10/23/2024 Orders Only GENERIC EXTERNAL DATA DEPARTMENT Provider, Generic External Data from Last 3 Months Immunizations Immunization Administration Dates Next Due Influenza, seasonal, injectable, [...] 09/16/2024 1:35 PM EST Plan of Treatment Upcoming Encounters Date Type Department Care Team (Late st Contact Info) Description 04/03/2025 11:15 AM EDT Office Visit [facility] [address] [place] [phone] Name, MD Evans [address] [place] [address] Health Maintenance Due Date Last Done Comments CT Colonography 1975 Colonoscopy 1975 Colorectal Cancer Screening 1975 FIT DNA/Cologuard 1975 FIT 1975 FOBT 1975 Sigmoidoscopy 1975 Disability Screening 1975 Alcohol/Substance Use Screening 1989 Family Planning [...] patient's age to complete this topic Meningococcal B Vaccine Aged Out No l onger eligible based on patient's age to complete this topic Meningococcal Vaccine Aged Out No ben jose eligible based on patient's age to complete this topic Pneumococcal Vaccine: Pediatrics (0 to 5 Years) and At-Risk Patients (6 to 49) Years Aged Out No longer eligible b ased [...] LEVEL 3 Routine 10/23/2024 2:30 PM EDT HEPATITIS C AB W/REFL TO HCV RNA, [...] 2:30 PM EDT 10/24/2024 6:30 AM EDT [facility] LABS - 10/25/2024 3:39 PM EDT ----- ------- Name: Walter Dennis ?Age/Sex: 49/M ? : 1975 Unit#: [id number] ?? Attend Dr: Chente Seo MD ?Re10/23/24 ?Status: DEP REF ? Location: HO.LNP ?Disch: ? ----- ------- SPEC : [id number] ? RECD: 10/24/24 ? STATUS: ??SOUT ? REQ NUM: [id number] ? YAHAIRA: 10/23/240 ? SUBM DR: Chente [...] Copies To: ?? Chente Seo MD ?? [facility] General Surgeons ?? [address] ?? [place] [address] ?? [phone] ?? Name,Evans ORTIZ ?? [address] [facility] ?? [place] [address] ?? [phone] ----- ------- Signed (signature on file) Cedric Galicia MD 10/25/24 5809 ? ----- ------- ? END OF REPORT ? us Generic External Data Provider LAB CYTOLOGY NEIL QUILES Final Result [facility] [address] [place] [address] [place] [phone] * Hepatitis C Antibody with Reflex to HCV, RNA, Quantitative, Real-Time PCR (05/15/2024 9:55 AM EDT) Hepatitis C Antibody Nonreactive Nonreactive [facility] Comment:Antibodies to HCV no t detected; does not exclude early acuteHCV infection. Blood Venous blood specimen / Unknown 05/15/2024 9:55 AM EDT 05/15/2024 11:06 AM EDT us Evans Vickers MD LAB BLOOD ORDERABLES Final Resul t Performing Organization Address [facility] Co de Phone Number [facility] [address] [place] [phone] * HIV-1/2 Antigen and Antibodies, Fourth Generation, with Reflexes (05/15/2024 9:55 AM EDT) HIV AB/AG Nonreactive Nonreactive [facility] Comment:HIV-1 p24 Ag and/or HIV-1/HIV-2 Ab not detected.A test result that is nonreactive does not exclude thepossibility of exposure to or infection with HIV-1 and/orHIV-2. Nonreactive results in this assay for individualswith prior exposure to HIV-1 and/or HIV-2 may be due toantigen and antibody levels that are below the limit ofdetection of this assay.The [employer] HIV Ag/Ab Combo assay result andsupplemental assay results should be interpreted inconjunction with the patient's clinical presentation,history and other laboratory results. If the results areinconsistent with clinical evidence, additional testing issuggested to confirm the result. Blood Venous blood specimen / Unknown 05/15/2024 9:55 AM EDT 05/15/2024 11:06 AM EDT us Evans Vickers MD LAB BLOOD ORDERABLES Final Resul t Performing Organization Address [facility] Co de Phone Number [facility] [address] [place] [phone] * (ABNORMAL) Lipid Panel, Standard (05/15/2024 9:55 AM EDT) Triglycerides 96 <150 mg/dL [facility] Comment:Desirable Triglyceri de: less than 150 mg/dLBorderline High Triglyceride 150-199 mg/dLHigh Triglyceride: 200-499 mg/dLVery High Triglyceride: greater than or equal to 5OO mg/dL Cholesterol 161 <200 mg/dL [facility] Comment:Desirable Cholestero l: less than 200 mg/dLBorderline High Cholesterol: 200-239 mg/dLHigh Cholesterol: greater than 239 mg/dL LDL Cholesterol Calculated 103(H) <100 mg/dL [facility] Comment:Desirable LDL: less than 100 mg/dLNear Optimal/Above Optimal LDL: 110- 129 mg/dLBorderline High LDL: 130-159 mg/dLHigh LDL: 160-189 mg/dLVery High LDL: greater than or equal to 190 mg/dL HDL Cholesterol 39(L) >40 mg/dL [facility] Comment:Desirable HDL: great er than 40 mg/dL Note: This HDL assay may give artificially low results in patients with liver disease. Blood Venous blood specimen / Unknown 05/15/2024 9:55 AM EDT 05/15/2024 11:12 AM EDT us Evans Name LAB BLOOD ORDERABLES Final Resul t [facility] [address] [place] [phone] from Last 3 Months or Most Recently Relevant to Health Maintenance Insurance [employer] [facility] [place] [address] Care Teams Airplane Pilot Relationship Specialty Start Date End Date Name, MD Evans [address] [place] [phone] PCP - General Internal Medicine 04/29/24
[2025-01-06 14:22] VITALS: BMI 28.6
--- NOTE | 2025-01-07 10:56 | HO.ANESPROP2 ---
Documented by User: Rosie Rossi NP 01/07/25 10:58 HPI - Anesthesia Eval Consult details Narrative: 49yo M for Colonoscopy [facility] Active Problems Active Problems: All Active Problems Epidermal cyst (Acute) Past Medical History Medical History Epidermal cyst Social History Social History Are you a primary personal caregiver to a significant other at home: No Alcohol intake: current Comment: Socially Patient Tobacco Use Status: Never used Tobacco Use of substances other than those prescribed or required for medical reasons: No Have you been hit, kicked, punched, or otherwise hurt by someone within the past year? If so, by whom?: No Are you DNR?: No Advance Directives: No Advance Directives Information Provided: Yes Poor oral hygiene: No Meds Allergies Allergy/AdvReac Type Severity Reaction Status Date / Time environmental allergies Allergy Unknown Itching Verified 11/20/24 08:37 Exam Height,Weight and Vital Signs: Height 5 ft 8 in Weight 85.275 kg Assessment and Plan Assessment Anesthesia Assessment: Chart Reviewed Documented by User: Fernando Muir MD 01/08/25 11:57 [facility] Past Medical History Medical History Epidermal cyst Family History Family history of problems with anesthesia: No Surgical History History of Problems with Anesthesia: No Social History Social History Are you a primary personal caregiver to a significant other at home: No Alcohol intake: current Comment: Socially Patient Tobacco Use Status: Never used Tobacco Use of substances other than those prescribed or required for medical reasons: No Have you been hit, kicked, punched, or otherwise hurt by someone within the past year? If so, by whom?: No Are you DNR?: No Advance Directives: No Advance Directives Information Provided: Yes Poor oral hygiene: No Meds Allergies Allergy/AdvReac Type Severity Reaction Status Date / Time environmental allergies Allergy Unknown Itching Verified 11/20/24 08:37 Exam Airway Mallampati Class: II TM Dist: >3cm Neck ROM: Full Loose/Missing/Broken Teeth: No Heart: ok Lungs: ok Assessment and Plan Assessment Anesthesia Assessment: Anesthesia Plan Discussed Final Anesthetic Review Family History of Problems with Anesthesia: No History of Problems with Anesthesia: No NPO: Yes ASA Class: I Final Preanesthetic Review: No Changes in Pt Med Stat, Meds/Allgs Chart Reviewed, Consent Obtained/Reviewed and Anes Risks/Benef Reviewed Patient Risk: Low Procedure Risk: Low Anesthetic Plan Anesthetic Plan: MAC: and Agree w/ Assess. and Plan Disposition: Standard PACU
[2025-01-08 11:06] VITALS: BMI 27.4
--- NOTE | 2025-01-08 11:12 | MHC.SHP ---
Pre-Procedural Eval Section A - 24 Hr Update-Section A only Date of Service: 01/08/25 Section B - Complete if H&P > 30 days Chief Complaint: screening Relevant Family History (Specify if Yes): No Relevant Social History: None Present Medications: see Short Stay Collaborative assessment Medical History: Significant History (Epidermal cyst) History of Previous Operations: No relevant previous surgery Allergies: Allergies Allergy/AdvReac Type Severity Reaction Status Date / Time environmental allergies Allergy Unknown Itching Verified 11/20/24 08:37 Review of Systems Sugical H&P ROS: Negative: Constitution, Cardiovascular, Respiratory, Neurological, Psychiatric, Hem-Onc, Allergic/Immunologic, Gastrointestinal, Genitourinary, Musculoskeletal, Integumentary, Endocrine and Eyes/Ears/Nose/Throat Exam Surgical H&P Exam: Normal: HEENT, Normal: Heart, Normal: Lungs, Normal: Extremities, Normal: Abdomen, Normal: Skin and Normal: Neurological Plan Diagnosis/Plan: Unchanged I have reviewed the history and physical and performed a pertinent physical examination on my patient. No changes have occurred unless specified. Time Spent With Patient Time: Total time managing care of this patient today ____ minutes.
[2025-01-08 11:40] VITALS: BP 110/77; PULSE 62; RESP 16; TEMP 36.6; O2SAT 100
[2025-01-08] MEDS: Lactated Ringers 1,000 ML 100 ML IVCONT (11:43)
--- NOTE | 2025-01-08 12:14 | P.OPN-COLO_ITS ---
Colonoscopy Operative Note Operative Note Date of Service: 01/08/25 Narrative: Operative Information Procedure Description: Colonoscopy Indication: screening Anesthesia: MAC COLONOSCOPY Instrument: Olympus variable stiffness pediatric scope 190L Colonoscopy Monitoring: Vital signs and clinical assessment, continuous EKG monitoring, Pulse oximetry, Carbon Dioxide monitoring and blood pressure monitoring were done throughout the procedure. Colon withdrawal time was 9 minutes. Procedure: The patient was placed in the left lateral decubitis position and pre-procedure medications were administered. After a digital rectal examination of the ano-rectum, the video colonoscope was inserted into the rectum and advanced through the colon to the cecum/TI. The colonoscope was slowly withdrawn in a retrograde panoramic fashion and the colon mucosa was carefully examined including a retroflexed view of the rectum. Findings and interventions are described below. Procedure Difficulty: easy Findings: Terminal Ileum-normal Cecum:normal right sided retroflexion- normal Ascending Colon: normal Transverse Colon -normal Descending Colon:normal Sigmoid Colon: normal Rectum: Retroflexion with small internal hemorrhoids seen, grade I Anorectum - normal Intervention: none Colon preparation: Middle Bass Bowel Preparation Scale Right colon; 2 Transverse colon: 3 Left colon; 3 (0 = Unprepared colon segment with mucosa not seen due to solid stool that cannot be cleared. 1 = Portion of mucosa of the colon segment seen, but other areas of the colon segment not well seen due to staining, residual stool and/or opaque liquid. 2 = Minor amount of residual staining, small fragments of stool and/or opaque liquid, but mucosa of colon segment seen well. 3 = Entire mucosa of colon segment seen well with no residual staining, small fragments of stool or opaque liquid) Impression and Post Procedure Diagnosis: internal hemorrhoids Plan: High fiber diet leaflet Avoid straining at stool, epsom salts and sitz bath, anusol supps or cream Repeat Colonoscopy in 10 years or earlier if clinically indicated Above findings were reviewed with the patient and relevant handouts were provided if indicated.
[2025-01-08 12:22] VITALS: BP 92/66; PULSE 79; RESP 17; TEMP 36.1; O2SAT 95
[2025-01-08 12:37] VITALS: BP 101/71; PULSE 60; RESP 16; TEMP 36.1; O2SAT 95
== END 2025-01-08 13:05 | disposition home or self-care (01) ==
PROVIDERS: PCP Internal Medicine Geriatric Medicine; Visit Provider Internal Medicine Gastroenterology
PROC: 0DJD8ZZ Inspection of Lower Intestinal Tract, Via Natural or Artificial Opening Endoscopic (ICD-10-PCS; CPT 45378; principal; 2025-01-08 13:40)
DX: Z12.11 Encounter for screening for malignant neoplasm of colon (principal); K64.0 First degree hemorrhoids
CPT/HCPCS: 45378; J2003; J2704

== ENCOUNTER → 2025-01-08 09:12 | Outpatient (BNV) | payer OTHER, SELFPAY | PROVIDERS: PCP Internal Medicine Geriatric Medicine; Visit Provider Internal Medicine Gastroenterology | DX: Z12.11 Encounter for screening for malignant neoplasm of colon (principal); K64.0 First degree hemorrhoids | CPT/HCPCS: 45378 ==